=== PATIENT | female | born 1985 | race Hispanic/Latino ===

== ENCOUNTER 2018-12-18 22:08 | Emergency (ER) | payer OTHER ==
--- NOTE | 2018-12-18 23:27 | ER ---
Nurse's Notes [facility] Name: Guerline Romeo Age: 33 yrs Sex: Female : 1985 Arrival Date: 12/18/2018 Time: 22:21 Bed 4 Private MD: Diagnosis: Influenza due to certain identified influenza viruses Presentation: 12/18 22:28 Presenting complaint: Patient states: that she feels as if she has the flu (body aches, fc cough, congestion, sore throat and fever) for the past 2 days. Did take Ampicillin 500 mg this am (had some from [place]). Transition of care: patient was not received from another setting of care. Onset of symptoms was December 16, 2018. Risk Assessment: Do you want to hurt yourself or someone else? Patient reports no desire to harm self or others. Initial Sepsis Screen: Does the patient meet any 2 criteria? No. Patient's initial sepsis screen is negative. Does the patient have a suspected source of infection? No. Patient's initial sepsis screen is negative. Care prior to arrival: Medication(s) given: Ampicillin 500 mg this am. 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 - Social history:: Smoking status: Patient/guardian denies using tobacco, Patient uses alcohol, occasionally. Patient/guardian denies using street drugs. - Ebola Screening: : Patient negative for fever greater than or equal to 101.5 degrees Fahrenheit, and additional compatible Ebola Virus Disease symptoms Patient denies exposure to infectious person Patient denies travel to an Ebola-affected area in the 21 days before illness onset. Screenin:31 Abuse screen: Denies threats or abuse. Nutritional screening: No deficits noted. fc Tuberculosis screening: No symptoms or risk factors identified. Fall Risk None identified. Assessment: 22:34 General: Appears in no apparent distress. uncomfortable, Behavior is calm, cooperative, jd3 appropriate for age. Pain: Complains of pain in throat Quality of pain is described as aching. Neuro: Level of Consciousness is awake, alert, obeys commands, Oriented to person, place, time, situation, Appropriate for age. Cardiovascular: Capillary refill < 3 seconds Patient's skin is warm and dry. Respiratory: Reports cough that is Airway is patent Respiratory effort is even, unlabored, Respiratory pattern is regular, symmetrical, Breath sounds are clear bilaterally. GI: No signs and/or symptoms were reported involving the gastrointestinal system. : No signs and/or symptoms were reported regarding the genitourinary system. EENT: Throat is reddened. Derm: Skin is intact, Skin is dry, Skin is normal, Skin temperature is warm. Musculoskeletal: Circulation, motion, and sensation intact. Range of motion: intact in all extremities. 23:21 Reassessment: Patient appears in no apparent distress at this time. Patient and/or jd3 family updated on plan of care and expected duration. Pain level reassessed. Patient is alert, oriented x 3, equal unlabored respirations, skin warm/dry/pink. 23:41 Reassessment: Patient appears in no apparent distress at this time. Patient and/or jd3 family updated on plan of care and expected duration. Pain level reassessed. Patient is alert, oriented x 3, equal unlabored respirations, skin warm/dry/pink. reported understanding of discharge instructions. Vital Signs: 22:30 BP 131 / 91; Pulse 64; Resp 18; Temp 97.8(O); Pulse Ox 100% on R/A; Weight 86.18 kg fc (R); Height 5 ft. 8 in. (172.72 cm) (R); Pain 9/10; 23:21 BP 107 / 71; Pulse 55; Resp 17 S; Pulse Ox 98% on R/A; jd3 22:30 Body Mass Index 28.89 (86.18 kg, 172.72 cm) ED Course: 22:21 Patient arrived in ED. am2 22:24 Rafael Holbrook, ROZ is Primary Nurse. jd3 22:25 [facility]y [facility]-C [facility]. kb 22:25 Jovanni Wise MD is Attending Physician. kb 22:30 Triage completed. fc 22:30 Arm band placed on Patient placed in an exam room, on a stretcher. fc 22:31 Patient has correct armband on for positive identification. Bed in low position. Call light in reach. Pulse ox on. NIBP on. 22:31 No provider procedures requiring assistance completed. fc 22:35 Flu Sent. jd3 22:35 Strep Sent. jd3 23:40 Patient did not have IV access during this emergency room visit. jd3 Administered Medications: 23:33 Drug: Tamiflu 75 mg Route: PO; jd3 23:41 Follow up: Response: Medication administered at discharge. jd3 23:33 Drug: Viscous Lidocaine Liquid (4 %) 5 ml Route: Mucous Membrane; jd3 23:41 Follow up: Response: Medication administered at discharge. jd3 Outcome: 23:26 Discharge ordered by . kb 23:39 Discharged to home ambulatory, with family. jd3 23:39 Condition: stable 23:39 Discharge instructions given to patient, family, Instructed on discharge instructions, follow up and referral plans. medication usage, Demonstrated understanding of instructions, follow-up care, medications, Prescriptions given X 1. 23:42 Patient left the ED. jd3 Signatures: Coby Diaz, MOLD MAKING SUPERVISOR-C MOLD MAKING SUPERVISOR-Sallie Castillo, RN RN Sandra Aguero Jonathon, RN RN jd3 Corrections: (The following items were deleted from the chart) 41 23:40 Response: No adverse reaction jd3 jd3 23:41 23:40 Response: No adverse reaction; Medication administered at discharge. jd3 jd3
--- NOTE | 2018-12-18 23:27 | EDPHYS ---
Physician Documentation [facility] Name: Guerline Romeo Age: 33 yrs Sex: Female : 1985 Arrival Date: 12/18/2018 Time: 22:21 Bed 4 Private MD: ED Physician Jovanni Wise HPI: 12/18 23:25 This 33 yrs old Female presents to ER via Ambulatory with complaints of Flu kb Symptoms. 23:25 The patient or guardian reports cough, that is intermittent, described as mild, with no kb sputum, flu symptoms, low-grade fever, myalgias. Onset: The symptoms/episode began/occurred 2 day(s) ago. Severity of symptoms: At their worst the symptoms were moderate, in the emergency department the symptoms are unchanged. Modifying factors: The symptoms are alleviated by nothing, the symptoms are aggravated by nothing. Associated signs and symptoms: Pertinent positives: fever, rhinorrhea, sore throat, Pertinent negatives: chest pain, diarrhea, ear ache, nausea, vomiting. The patient has not experienced similar symptoms in the past. The patient has not recently seen a physician. 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 - Social history:: Smoking status: Patient/guardian denies using tobacco, Patient uses alcohol, occasionally. Patient/guardian denies using street drugs. - Ebola Screening: : Patient negative for fever greater than or equal to 101.5 degrees Fahrenheit, and additional compatible Ebola Virus Disease symptoms Patient denies exposure to infectious person Patient denies travel to an Ebola-affected area in the 21 days before illness onset. ROS: 23:24 Neck: Negative for injury, pain, and swelling, Cardiovascular: Negative for chest pain, kb palpitations, and edema, Abdomen/GI: Negative for abdominal pain, nausea, vomiting, diarrhea, and constipation, MS/Extremity: Negative for injury and deformity, Skin: Negative for injury, rash, and discoloration, Neuro: Negative for headache, weakness, numbness, tingling, and seizure. 23:24 Constitutional: Positive for body aches, chills, fatigue, fever, malaise, Negative for poor PO intake, weight loss. 23:24 ENT: Positive for rhinorrhea, sinus congestion. 23:24 Respiratory: Positive for cough, Negative for dyspnea on exertion, hemoptysis, orthopnea, pleurisy, shortness of breath, sputum production, wheezing. Exam: 23:24 Constitutional: This is a well developed, well nourished patient who is awake, alert, kb and in no acute distress. Head/Face: Normocephalic, atraumatic. Neck: Trachea midline, no thyromegaly or masses palpated, and no cervical lymphadenopathy. Supple, full range of motion without nuchal rigidity, or vertebral point tenderness. No Meningismus. Chest/axilla: Normal chest wall appearance and motion. Nontender with no deformity. No lesions are appreciated. Cardiovascular: Regular rate and rhythm with a normal S1 and S2. No gallops, murmurs, or rubs. Normal PMI, no JVD. No pulse deficits. Respiratory: Lungs have equal breath sounds bilaterally, clear to auscultation and percussion. No rales, rhonchi or wheezes noted. No increased work of breathing, no retractions or nasal flaring. Abdomen/GI: Soft, non-tender, with normal bowel sounds. No distension or tympany. No guarding or rebound. No evidence of tenderness throughout. Skin: Warm, dry with normal turgor. Normal color with no rashes, no lesions, and no evidence of cellulitis. MS/ Extremity: Pulses equal, no cyanosis. Neurovascular intact. Full, normal range of motion. Neuro: Awake and alert, GCS 15, oriented to person, place, time, and situation. Cranial nerves II-XII grossly intact. Motor strength 5/5 in all extremities. Sensory grossly intact. Cerebellar exam normal. Normal gait. 23:24 ENT: External ear(s): are unremarkable, Ear canal(s): are normal, TM's: fluid levels, bilaterally, Nose: is normal, Mouth: is normal, Posterior pharynx: is normal. Vital Signs: 22:30 BP 131 / 91; Pulse 64; Resp 18; Temp 97.8(O); Pulse Ox 100% on R/A; Weight 86.18 kg fc (R); Height 5 ft. 8 in. (172.72 cm) (R); Pain 9/10; 23:21 BP 107 / 71; Pulse 55; Resp 17 S; Pulse Ox 98% on R/A; jd3 22:30 Body Mass Index 28.89 (86.18 kg, 172.72 cm) MDM: 22:27 Patient medically screened. kb 23:24 Data reviewed: vital signs, nurses notes. Data interpreted: Pulse oximetry: on room air kb is 98 %. Interpretation: normal. Counseling: I had a detailed discussion with the patient and/or guardian regarding: the historical points, exam findings, and any diagnostic results supporting the discharge/admit diagnosis, lab results, the need for outpatient follow up, a family practitioner, to return to the emergency department if symptoms worsen or persist or if there are any questions or concerns that arise at home. 12/18 22:28 Order name: Flu; Complete Time: 23:15 12/18 22:28 Order name: Strep; Complete Time: 23:15 12/18 23:07 Order name: Throat Culture EDAL Administered Medications: 23:33 Drug: Tamiflu 75 mg Route: PO; jd3 23:41 Follow up: Response: Medication administered at discharge. jd3 23:33 Drug: Viscous Lidocaine Liquid (4 %) 5 ml Route: Mucous Membrane; jd3 23:41 Follow up: Response: Medication administered at discharge. jd3 Disposition: 12/18/18 23:26 Discharged to Home. Impression: Influenza due to certain identified influenza viruses. - Condition is Stable. - Discharge Instructions: Influenza, Adult, [id number]. - Prescriptions for Tamiflu 75 mg Oral Capsule - take 1 capsule by ORAL route every 12 hours for 5 days; 10 capsule. - Medication Reconciliation Form, Thank You Letter, Antibiotic Education, Prescription Opioid Use form. - Follow up: Private Physician; When: 2 - 3 days; Reason: Recheck today's complaints, Continuance of care, Re-evaluation by your physician. Follow up: Emergency Department; When: As needed; Reason: Worsening of condition. Addendum: 12/21/2018 07:01 Co-signature as Attending Physician, Jovanni Wise MD I agree with the assessment and k dr plan of care. Signatures: Dispatcher [employer] EDAL Coby Diaz, KEMI-C MECHATRONICS ENGINEER-CkJovanni Black MD MD [facility] Sallie Haddad RN RN Rafael Cole RN RN jd3 Corrections: (The following items were deleted from the chart) 12/18 23:42 23:26 12/18/2018 23:26 Discharged to Home. Impression: Influenza due to certain jd3 identified influenza viruses. Condition is Stable. Forms are Medication Reconciliation Form, Thank You Letter, Antibiotic Education, Prescription Opioid Use. Follow up: Private Physician; When: 2 - 3 days; Reason: Recheck today's complaints, Continuance of care, Re-evaluation by your physician. Follow up: Emergency Department; When: As needed; Reason: Worsening of condition. kb
[2018-12-18] MEDS ORDERED: OSELTAMIVIR 75 MG CAP ONE (23:39)
[2018-12-18] MEDS ORDERED: LIDOCAINE VISCOUS 2% SOLN 15 ML UDC ONE (23:41)
== END 2018-12-18 23:42 | disposition home or self-care (01) ==
LOC: ER 22:08
DX: J10.1 Influenza due to other identified influenza virus with other respiratory manifestations (principal)
CPT/HCPCS: 87070; 87081; 87804; 99284

== ENCOUNTER 2019-06-23 12:34 | Emergency (ER) | payer OTHER ==
[2019-06-23] MEDS ORDERED: FAMOTIDINE 20 MG/2 ML VIAL IV ONE (13:14)
[2019-06-23] MEDS ORDERED: ONDANSETRON 4 MG/2 ML VIAL ONE (13:14)
[2019-06-23] MEDS ORDERED: NA CHLORIDE 0.9% 1,000 ML ONE ×2 (13:14→14:09)
[2019-06-23 13:34] LABS: Absolute Lymphocytes (CBC) 0.4 K/uL (0.7-4.9); Basophils % 0.3 % (0-1.3); Hematocrit 40.3 % (36.0-45.0); Lymphocytes % 2.9 % (15.3-44.8); MPV 10.2 fL (7.6-11.3); RBC Red Blood Cell Count 4.21 M/uL (3.86-4.86)
[2019-06-23 13:57] LABS: Albumin 4.2 g/dL (3.4-5.0); Bilirubin Direct 0.2 mg/dL (0-0.2); Bilirubin Total 0.7 mg/dL (0.2-1.0); Protein, Total 8.1 g/dL (6.4-8.2)
[2019-06-23] MEDS ORDERED: ACETAMINOPHEN 500 MG TAB ONE (14:09)
--- NOTE | 2019-06-23 16:10 | RAD REPORT ---
EXAM DESCRIPTION: CT - Abdomen Pelvis W Contrast - 06/23/2019 3:46 pm CLINICAL HISTORY: N/V/D;Abd pain COMPARISON: None. TECHNIQUE: Biphasic, helical CT imaging of the abdomen and pelvis was performed following 100 ml non -ionic IV contrast. No oral contrast administered. All CT scans are performed using dose optimization technique as appropriate and may include automated exposure control or mA/KV adjustment according to patient size. FINDINGS: No suspicious findings in the lung bases. The liver, spleen, and pancreas show no suspicious findings. Gallbladder and biliary tree are also wi thout suspicious finding. Symmetric renal function is seen with no hydronephrosis or suspicious renal mass. No pyelonephritis o r acute parenchymal process. No adrenal abnormalities. Urinary bladder is fully contracted. No uterin e abnormality. IUD is in place normally positioned. No ovarian process suspected. No gastric dilatation or wall thickening. No dilated large or small bowel loops present. Appendectomy clips are present. Mild circumferential wall thickening is present involving a substantial portion o f the ileum. The jejunum appears spared. No free air, free fluid or inflammatory stranding. No danial ia, mass or bulky lymphadenopathy. No suspicious bony findings. Atrophy changes are evident in the gluteus pedro musculature. This is a symmetric pattern. In the f atty tissues between the gluteus pedro and gluteus medius muscle on the right there is a 5 x 2 cent imeter oval mass. This is mostly fat but does contain small calcifications. The mass does not involve the muscle. Patient appears to have multiple additional primarily fatty masses interspersed between the muscle fibers of the atrophic gluteus pedro musculature. Masses do not appear aggressive. Corre lation is needed to determine if the patient had any cosmetic procedure that may have injected fat or material into the musculature. IMPRESSION: Nonspecific ileitis pattern involving a majority of the distal ileum. No colon involvem ent. No abscess, free air or surgically emergent finding. Multiple predominantly fatty mass is between the muscle fibers of atrophic gluteus pedro musculatur e and on the right between the gluteus pedro and gluteus medius musculature. Masses do not appear a ggressive. These are possibly related to a cosmetic procedure. This would need clinical correlation.
[2019-06-23 16:13] LABS: Urine Blood NEGATIVE (NEG); Urine Glucose NEGATIVE (NEG); Urine Protein TRACE (NEG); Urine Specific Gravity >1.030 (1.005-1.030); Urine pH 5.5 (5.0-7.0)
[2019-06-23] MEDS ORDERED: METOCLOPRAMIDE 10 MG/2mL INJ ONE (16:25)
[2019-06-23] MEDS ORDERED: KETOROLAC 30 MG/ML INJ ONE (16:26)
--- NOTE | 2019-06-23 16:53 | EDPHYS ---
Physician Documentation [facility] Name: Guerline Romeo Age: 34 yrs Sex: Female : 1985 Arrival Date: 06/23/2019 Time: 12:37 Bed 25 Private MD: Ladarius Astudillo ED Physician Jovanni Wise HPI: 06/23 13:05 This 34 yrs old Female presents to ER via Ambulatory with complaints of cp Abdominal Pain, Vomiting/Diarrhea. 13:05 The patient presents with abdominal pain that is diffuse. cp 13:05 Onset: The symptoms/episode began/occurred this morning. Associated signs and symptoms: cp Pertinent positives: nausea and vomiting, diarrhea, headache, Pertinent negatives: blood in stools, vomiting blood. Severity of pain: in the emergency department the pain is unchanged despite home interventions. 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 - Social history:: Smoking status: Patient/guardian denies using tobacco. - Ebola Screening: : No symptoms or risks identified at this time. ROS: 13:10 Constitutional: Positive for poor PO intake, Negative for body aches, chills, fever. cp 13:10 Eyes: Negative for injury, pain, redness, and discharge. cp 13:10 ENT: Negative for drainage from ear(s), ear pain, sore throat, difficulty swallowing, difficulty handling secretions. 13:10 Cardiovascular: Negative for chest pain. 13:10 Respiratory: Negative for cough, shortness of breath, wheezing. 13:10 Abdomen/GI: Positive for abdominal pain, nausea, vomiting, and diarrhea, Negative for hematemesis, black/tarry stool, rectal bleeding. 13:10 Skin: Negative for rash. 13:10 Neuro: Negative for altered mental status, headache, weakness. 13:10 All other systems are negative. Exam: 13:20 Constitutional: The patient appears in no acute distress, alert, awake, non-toxic, well cp developed, well nourished. 13:20 Head/Face: Normocephalic, atraumatic. cp 13:20 Eyes: Periorbital structures: appear normal, Conjunctiva: normal, no exudate, no injection, Sclera: no appreciated abnormality, Lids and lashes: appear normal, bilaterally. 13:20 ENT: External ear(s): are unremarkable, Nose: is normal, Mouth: Lips: moist, Oral mucosa: pink and intact, moist, Posterior pharynx: is normal, airway is patent, no erythema, no exudate. 13:20 Chest/axilla: Inspection: normal, Palpation: is normal, no crepitus, no tenderness. 13:20 Cardiovascular: Rate: normal, Rhythm: regular. 13:20 Respiratory: the patient does not display signs of respiratory distress, Respirations: normal, no use of accessory muscles, no retractions, no splinting, no tachypnea, Breath sounds: are clear throughout, no decreased breath sounds, no stridor, no wheezing. 13:20 Abdomen/GI: Inspection: abdomen appears normal, Bowel sounds: active, all quadrants, Palpation: soft, in all quadrants, moderate abdominal tenderness, in all quadrants, voluntary guarding, is not appreciated, involuntary guarding, is not appreciated. Vital Signs: 12:39 BP 130 / 90; Pulse 86; Resp 16; Temp 99.6; Pulse Ox 97% on R/A; Weight 90.72 kg; Height hb 5 ft. 8 in. (172.72 cm); Pain 8/10; 14:00 BP 132 / 88; Pulse 87; Resp 16; Pulse Ox 97% on R/A; Pain 7/10; sg 16:00 BP 133 / 82; Pulse 88; Resp 17 S; Pulse Ox 98% on R/A; Pain 6/10; sg 18:00 BP 127 / 80; Pulse 87; Resp 17; Temp 98.9; Pulse Ox 99% on R/A; sg 12:39 Body Mass Index 30.41 (90.72 kg, 172.72 cm) hb MDM: 12:45 Patient medically screened. cp 16:51 Data reviewed: vital signs, nurses notes, lab test result(s), radiologic studies. cp 16:51 Counseling: I had a detailed discussion with the patient and/or guardian regarding: the cp historical points, exam findings, and any diagnostic results supporting the discharge/admit diagnosis, lab results, radiology results, to return to the emergency department if symptoms worsen or persist or if there are any questions or concerns that arise at home. Response to treatment: the patient's symptoms have markedly improved after treatment, and as a result, I will discharge patient. 16:52 Special discussion: Based on the patient's Hx, exam, and Dx evaluation, there is no cp indication for emergent surgery or inpatient Tx. It is understood by the patient/guardian that if the Sx's persist or worsen they need to return immediately for re-evaluation. 06/23 13:00 Order name: Basic Metabolic Panel; Complete Time: 13:58 cp 06/23 13:58 Interpretation: Normal except: CL 110; GLUC 127; GFR 69. cp 06/23 13:00 Order name: CBC with Diff 06/23 13:59 Interpretation: Normal except: WBC 15.0; CEDRICK% 94.2; LYM% 2.9; MN% 2.6; NEUT A 14.1; cp LYMA 0.4. 06/23 13:00 Order name: Creatinine for Radiology; Complete Time: 13:58 06/23 13:00 Order name: Hepatic Function; Complete Time: 13:58 cp 06/23 13:59 Interpretation: Normal except: GLOB 3.9. 06/23 13:00 Order name: Lipase; Complete Time: 13:58 cp 06/23 15:33 Order name: Urine Dipstick--Ancillary (enter results); Complete Time: 16:19 06/23 13:53 Order name: CT Abd/Pelvis - IV Contrast Only; Complete Time: 16:28 cp 06/23 15:33 Order name: Urine --Ancillary (enter results); Complete Time: 16:19 06/23 13:00 Order name: IV Saline Lock; Complete Time: 13:13 cp 06/23 13:00 Order name: Labs collected and sent; Complete Time: 13:13 cp 06/23 13:00 Order name: Urine Dipstick-Ancillary (obtain specimen); Complete Time: 15:50 cp 06/23 13:00 Order name: Urine Test (obtain specimen); Complete Time: 15:50 06/23 16:30 Order name: PO challenge; Complete Time: 16:39 cp Administered Medications: 13:25 Drug: Zofran 4 mg Route: IVP; Site: left antecubital; sg 13:25 Drug: Pepcid 20 mg Route: IVP; Site: left antecubital; sg 13:25 Drug: NS 0.9% 1000 ml Route: IV; Rate: 1 bolus; Site: left antecubital; sg 16:28 Follow up: IV Status: Completed infusion rv 14:14 Drug: NS 0.9% 1000 ml Route: IV; Rate: 1 bolus; Site: left antecubital; sg 14:14 Drug: Tylenol 1000 mg Route: PO; sg 16:28 Drug: TORadol 30 mg Route: IVP; Site: left antecubital; rv 16:28 Drug: Reglan 10 mg Route: IVP; Site: left antecubital; rv 17:03 Drug: metroNIDAZOLE 500 mg Volume: 100 ml; Route: IVPB; Infused Over: 30 mins; Site: sg left antecubital; 17:03 Drug: Cipro 500 mg Route: PO; sg Disposition: 06/23/19 16:52 Discharged to Home. Impression: Nausea and vomiting, Diarrhea, unspecified. - Condition is Stable. - Discharge Instructions: Food Choices to Help Relieve Diarrhea, Adult, Diarrhea, Adult, Nausea and Vomiting, Adult. - Prescriptions for Bentyl 20 mg Oral Tablet - take 2 tablets by ORAL route every 6 hours As needed; 30 tablet. Zofran 4 mg Oral Tablet - take 1 tablet by ORAL route every 12 hours As needed; 20 tablet. Cipro 500 mg Oral Tablet - take 1 tablet by ORAL route every 12 hours for 10 days; 20 tablet. Metronidazole 500 mg Oral Tablet - take 1 tablet by ORAL route every 8 hours; 30 tablet. Ibuprofen 800 mg Oral Tablet - take 1 tablet by ORAL route every 8 hours As needed take with food; 30 tablet. - Work release form, Medication Reconciliation Form, Thank You Letter, Antibiotic Education, Prescription Opioid Use form. - Follow up: Sebastien Wilkinson MD; When: 2 - 3 days; Reason: Recheck today's complaints. - Problem is new. - Symptoms have improved. Addendum: 06/25/2019 07:55 Co-signature as Attending Physician, Jovanni barbosa dr Signatures: Dispatcher [employer] Rodríguez Suarez RN RN sg Rittger, Kevin, MD MD kdr Page, Corey, PA PA cp Baxter, Heather, RN RN Jeramy Cleaning RN RN rv Corrections: (The following items were deleted from the chart) 06/23 13:59 13:52 Normal except: WBC 15.0; CEDRICK% 94.2; LYM% 2.9; MN% 2.6; NEUT A 14.1. cp cp 18:26 16:52 06/23/2019 16:52 Discharged to Home. Impression: Nausea and vomiting; Diarrhea, sg unspecified. Condition is Stable. Forms are Medication Reconciliation Form, Thank You Letter, Antibiotic Education, Prescription Opioid Use. Follow up: Sebastien Wilkinson; When: 2 - 3 days; Reason: Recheck today's complaints. Problem is new. Symptoms have improved. cp
--- NOTE | 2019-06-23 16:53 | ER ---
Nurse's Notes [facility] Name: Guerline Romeo Age: 34 yrs Sex: Female : 1985 Arrival Date: 06/23/2019 Time: 12:37 Bed 25 Private MD: Ladarius Astudillo Diagnosis: Nausea and vomiting;Diarrhea, unspecified Presentation: 06/23 12:38 Presenting complaint: N/V/D, upper abdominal cramping, headache, chills, and body aches hb since 0100 today. Not tolerating fluids. Transition of care: patient was not received from another setting of care. Onset of symptoms was June 23, 2019. Risk Assessment: Do you want to hurt yourself or someone else? Patient reports no desire to harm self or others. Initial Sepsis Screen: Does the patient meet any 2 criteria? No. Patient's initial sepsis screen is negative. Does the patient have a suspected source of infection? No. Patient's initial sepsis screen is negative. Care prior to arrival: None. 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 - Social history:: Smoking status: Patient/guardian denies using tobacco. - Ebola Screening: : No symptoms or risks identified at this time. Screenin:30 Abuse screen: Denies threats or abuse. Denies injuries from another. Nutritional sg screening: No deficits noted. Tuberculosis screening: No symptoms or risk factors identified. Fall Risk None identified. Assessment: 13:30 General: Appears in no apparent distress. well groomed, well developed, well nourished, sg Behavior is calm, cooperative, appropriate for age. Pain: Complains of pain in head and abdomen Quality of pain is described as aching. Neuro: Level of Consciousness is awake, alert, obeys commands, Oriented to person, place, time, Mailroom Assistant are equal bilaterally Moves all extremities. Full function Speech is normal, Facial symmetry appears normal. Cardiovascular: Capillary refill is brisk in bilateral fingers Patient's skin is warm and dry. Chest pain is denied. Respiratory: Airway is patent Respiratory effort is even, unlabored, Respiratory pattern is regular, symmetrical. GI: Abdomen is round non-distended, Bowel sounds present X 4 quads. Abd is soft and non tender X 4 quads. GI: Reports diarrhea, intolerance of fluids, nausea, vomiting. : No signs and/or symptoms were reported regarding the genitourinary system. EENT: No signs and/or symptoms were reported regarding the EENT system. Derm: Skin is pink, warm \T\ dry. Musculoskeletal: No signs and/or symptoms reported regarding the musculoskeletal system. 14:34 Reassessment: Patient appears in no apparent distress at this time. Patient is alert, sg oriented x 3, equal unlabored respirations, skin warm/dry/pink. pt informed we need a urine specimen as ordered, pt reports she is unable to go at this time, requests to try and go in 15 mins, will continue to monitor. 15:40 Reassessment: Patient appears in no apparent distress at this time. Patient and/or sg family updated on plan of care and expected duration. Pain level reassessed. Patient is alert, oriented x 3, equal unlabored respirations, skin warm/dry/pink. 17:21 Reassessment: pt awaiting IV abx to completely infuse at this time, pt family remains sg at bedside, pt educated on dietary choices for at home use, pt educated on DC instructions, awaiting to be DC to home at this time. 18:00 Reassessment: Patient appears in no apparent distress at this time. Patient and/or sg family updated on plan of care and expected duration. Pain level reassessed. Patient is alert, oriented x 3, equal unlabored respirations, skin warm/dry/pink. pt abx continue to infuse, pt to be dispo to home once complete Patient states feeling better. Vital Signs: 12:39 BP 130 / 90; Pulse 86; Resp 16; Temp 99.6; Pulse Ox 97% on R/A; Weight 90.72 kg; Height hb 5 ft. 8 in. (172.72 cm); Pain 8/10; 14:00 BP 132 / 88; Pulse 87; Resp 16; Pulse Ox 97% on R/A; Pain 7/10; sg 16:00 BP 133 / 82; Pulse 88; Resp 17 S; Pulse Ox 98% on R/A; Pain 6/10; sg 18:00 BP 127 / 80; Pulse 87; Resp 17; Temp 98.9; Pulse Ox 99% on R/A; sg 12:39 Body Mass Index 30.41 (90.72 kg, 172.72 cm) hb ED Course: 12:37 Patient arrived in ED. mr 12:38 Ladarius Astudillo MD is Private Physician. mr 12:39 Triage completed. hb 12:39 Arm band placed on. hb 12:41 Jairo Inteirano PA is PHCP. cp 12:41 Jovanni Wise MD is Attending Physician. cp 12:50 Marilyn Villalobos, RN is Primary Nurse. iw 13:20 Initial lab(s) drawn, by me, sent to lab. Inserted saline lock: 22 gauge in left sg antecubital area, using aseptic technique. Blood collected. 13:30 Patient has correct armband on for positive identification. Bed in low position. Call sg light in reach. Side rails up X2. Pulse ox on. NIBP on. Head of bed. 13:37 Primary Nurse role handed off by Marilyn Villalobos, RN sg 13:37 Rodríguez Calix, ROZ is Primary Nurse. sg 14:46 Radiology exam delayed due to test not completed at this time. nj 15:52 CT Abd/Pelvis - IV Contrast Only In Process Unspecified. EDMS 15:54 Awaiting lab results, Awaiting radiology results. sg 16:52 Sebastien Wilkinson MD is Referral Physician. cp 18:20 No provider procedures requiring assistance completed. IV discontinued, intact, sg bleeding controlled, No redness/swelling at site. Pressure dressing applied. Administered Medications: 13:25 Drug: Zofran 4 mg Route: IVP; Site: left antecubital; sg 13:25 Drug: Pepcid 20 mg Route: IVP; Site: left antecubital; sg 13:25 Drug: NS 0.9% 1000 ml Route: IV; Rate: 1 bolus; Site: left antecubital; sg 16:28 Follow up: IV Status: Completed infusion rv 14:14 Drug: NS 0.9% 1000 ml Route: IV; Rate: 1 bolus; Site: left antecubital; sg 14:14 Drug: Tylenol 1000 mg Route: PO; sg 16:28 Drug: TORadol 30 mg Route: IVP; Site: left antecubital; rv 16:28 Drug: Reglan 10 mg Route: IVP; Site: left antecubital; rv 17:03 Drug: metroNIDAZOLE 500 mg Volume: 100 ml; Route: IVPB; Infused Over: 30 mins; Site: sg left antecubital; 17:03 Drug: Cipro 500 mg Route: PO; sg Outcome: 16:52 Discharge ordered by MD. cp 18:20 Discharged to home ambulatory, with family. sg 18:20 Condition: good 18:20 Discharge instructions given to patient, Instructed on discharge instructions, follow up and referral plans. safety practices, Demonstrated understanding of instructions, follow-up care, Prescriptions given X 4. 18:26 Patient left the ED. sg Signatures: Dispatcher [employer] EDRodríguez Medrano RN ROZ sg ZendejasPiedad crane, Marilny RN Jairo Collier PA PA cp Baxter, Heather, RN RN hb Jordan, Nathan nj Vicente, Ronaldo, RN RN rv
[2019-06-23] MEDS ORDERED: CIPROFLOXACIN HCL 500 MG TAB ONE (16:57)
[2019-06-23] MEDS ORDERED: METRONIDAZOLE 500mg IVPB 500 MG/100 ML BAG IV ONE (16:57)
[2019-06-23 21:21] LABS: Blood Morphology Comment NOT SEEN (NOT SEEN); Platelet Estimate ADEQ
[2019-06-23 22:54] VITALS: TEMP 99.6
[2019-06-23 22:58] VITALS: BP 133/82; O2SAT 98
== END 2019-06-23 18:26 | disposition home or self-care (01) ==
LOC: ER 12:34
DX: R19.7 Diarrhea, unspecified (principal)
CPT/HCPCS: 96361; 85025; 80048; 36415; 81025; 80076; 81003; 83690; 74177; 96375; 96374; 99284; Q9967; J2765; J7030 ×2; J2405